=== PATIENT | male | born 1960 | race Caucasian/White ===

== ENCOUNTER → 2024-10-29 | Outpatient (CLI) | payer MEDICARE ==
--- NOTE | 2024-10-29 10:07 | US ---
EXAMINATION TYPE: US prostate transrectal DATE OF EXAM: 10/29/2024 COMPARISON: NONE CLINICAL INDICATION: Male, 64 years old with history of R14.0 ABDOMINAL DISTENSION (GASEOUS); Pt stat es doctor felt prostate enlarged on digital examination, pt has no urinary complaints at this time TECHNIQUE: Grayscale and color Doppler imaging of the prostate gland. This examination was performed using the transrectal probe. EXAM MEASUREMENTS: Gland Size: 4.4 x 2.7 x 5.1 cm Volume: 32.5 ml Predicted PSA: 3.9 Actual PSA (if available):2.96 on 10/07/2024 Heterogeneous prostate with no definite lesion visualized within periphery of gland. Echogenic calci fications identified within the prostate gland. IMPRESSION: 1. No suspicious masses visualized. 2. Mildly enlarged prostate gland suggesting BPH. 3. Note that prostate MRI is a more sensitive exam for the detection of clinically significant prost ate adenocarcinoma. [facility], , 10/29/2024 10:05 AM
--- NOTE | 2024-10-29 10:20 | XR ---
EXAMINATION TYPE: XR shoulder complete RT DATE OF EXAM: 10/29/2024 10:14 AM INDICATION: Patient age:Male; 64 years old; Reason for study: Right shoulder pain; pain COMPARISON: None TECHNIQUE: The right shoulder was examined in AP, internally rotated and scapular Y projections. . FINDINGS: No evidence of acute osseous pathology, joint dislocation, or soft tissue swelling. The remaining por tions of the visualized chest are unremarkable. IMPRESSION: No acute osseous pathology. [facility], , 10/29/2024 10:18 AM
--- NOTE | 2024-10-29 10:25 | CT ---
EXAMINATION TYPE: CT heart w calcium score DATE OF EXAM: 10/29/2024 COMPARISON: None CLINICAL INDICATION: Male, 64 years old with history of R14.0 ABDOMINAL DISTENSION (GASEOUS); PHH, el evated cholestrol TECHNIQUE: Prospective Gating was used. Slice thickness: 3mm. Density threshold (HU): 130, Pixel threshold: 3, Algorithm: discrete. CT DLP: 67.[address] CTDI: 3.43 mGy Automated exposure control for dose reduction was used. FINDINGS: CT CALCIUM SCORING Coronary calcium is a marker for plaque (fatty deposits) in a blood vessel or atherosclerosis (harden ing of the arteries). The presence and amount of calcium detected in a coronary artery by the CT sca n, indicates the presence and amount of atherosclerotic plaque. These calcium deposits appear years before the development of heart disease symptoms such as chest pain and shortness of breath. A calcium score is computed for each of the coronary arteries based upon the volume and density of th e calcium deposits. This can be referred to as your calcified plaque burden. It does not correspond directly to the percentage of narrowing in the artery but does correlate with the severity of the un derlying coronary atherosclerosis. RESULTS Region: LM Calcium Score ([place]): 150.36 Volume (mm3): 130.3 Mass (g): 48.43 Region: RCA Calcium Score ([place]): 14.17 Volume (mm3): 6.44 Mass (g): 19.32 Region: LAD Calcium Score ([place]): 0 Volume (mm3): 0 Mass (g): 0 Region: CX Calcium Score ([place]): 0 Volume (mm3): 0 Mass (g): 0 Region: PDA Calcium Score ([place]): 0 Volume (mm3): 0 Mass (g): 0 Total: Calcium Score ([place]): 164.53 Volume (mm3): 149.63 Mass (g): 49.88 TOTAL CALCIUM SCORE: 164.53 IMPRESSION: Calcium Score: 101-400 Implication: Definite, at least moderate atherosclerotic plaque. Risk of Coronary Artery Disease: Mild coronary artery disease highly likely, significant narrowings p ossible Ectasia of the ascending thoracic aorta measuring up to 3.9 cm. CALCIUM SCORE IMPLICATION RISK OF C ORONARY ARTERY DISEASE 0 No identifiable plaque Very low, generally less than 5% 1-10 Minimal identifiable plaque Very unlikely, less than 10% 11-100 Definite, at least mild atherosclerotic plaque Mild or m inimal coronary narrowings likely 101-400 Definite, at least moderate atherosclerotic plaque Mild coronary ar mulugeta disease highly likely, significant narrowing possible 401 or Higher Extensive atherosclerotic plaque High lik elihood of at least one significant coronary narrowing [facility], , 10/29/2024 10:23 AM
== END | disposition home or self-care (01) ==
LOC: RADUSWWP 09:12
PROVIDERS: ATTEND Internal Medicine
DX: E78.5 Hyperlipidemia, unspecified (principal); N40.0 Benign prostatic hyperplasia without lower urinary tract symptoms; M25.511 Pain in right shoulder; I25.10 Atherosclerotic heart disease of native coronary artery without angina pectoris
CPT/HCPCS: 75571; 76872

== ENCOUNTER → 2024-11-17 | Outpatient (CLI) | payer MEDICARE ==
--- NOTE | 2024-11-18 06:20 | XR ---
EXAMINATION TYPE: XR cervical spine comp DATE OF EXAM: 11/17/2024 TECHNIQUE: Frontal, lateral, oblique, and open mouth view of the cervical spine are obtained. CLINICAL INDICATION: Male, 64 years old with history of M54.2 CERVICALGIA, pain COMPARISON: None FINDINGS: The cervical spine is visualized in its entirety from C1 thru the top of T1 level, it is s traightened in alignment. There is Slight grade 1 anterolisthesis of C2 on C3 and C3 on C4. There is slight grade 1 retrolisthesis of C5 on C6 and C6 on C7. The pre-vertebral soft tissue appears within normal limits. The C1-C2 articulation is within normal limits on the open mouth view. Vertebral bod y heights are maintained. There is moderate to severe multilevel disc space narrowing C4-C5 through C 6-C7 levels with mild to moderate anterior spurring. The oblique images shows multilevel bilateral ne ural foraminal encroachment due to uncovertebral facet arthropathy. The overlying soft tissue is unre markable. IMPRESSION: As above. [facility], , 11/18/2024 6:17 AM
== END | disposition home or self-care (01) ==
LOC: RADXRMAIN 16:34
PROVIDERS: ATTEND Internal Medicine
DX: M47.812 Spondylosis without myelopathy or radiculopathy, cervical region (principal); M43.12 Spondylolisthesis, cervical region
CPT/HCPCS: 72050